=== PATIENT | male | born 1985 | race Caucasian/White ===

== ENCOUNTER 2018-06-05 11:37 | Emergency (ER) | payer OTHER, SELFPAY ==
[2018-06-05 11:40] VITALS: BP 128/78; PULSE 95; RESP 16; TEMP 37; O2SAT 98
--- NOTE | 2018-06-05 11:58 | ED_ITS ---
HPI - General Adult General Chief complaint: Trauma Stated complaint: fall from ladder, L leg pain,L rib Pain Time Seen by Provider: 06/05/18 11:51 Source: patient Mode of arrival: ambulatory Limitations: no limitations History of Present Illness HPI narrative: patient is an otherwise healthy 32-year-old male here for evaluation after he was standing on a ladder painting in the ladder slid out from under him. He states that he fell approximately 10-15 feet. He states that his legs fell through the ladder. He did not hit his head. Was able to ambulate afterwards. He did hit his left side on the ladder. Here complaining of left-sided rib pain with palpation and also left knee pain. Related Data Previous Rx's Medication Instructions Recorded hydrocodone-acetaminophen [Gaston] 1 tab PO Q4-6H PRN #7 tab 06/05/18 Allergies Allergy/AdvReac Type Severity Reaction Status Date / Time No Known Drug Allergies Allergy Verified 06/05/18 12:28 Review of Systems Constitutional Denies frequent falls and Denies headache(s) ENT Ears, Nose, Mouth, and Throat: Denies vertigo and Denies headache(s) Cardiovascular Reports chest pain ( Left-sided chest wall pain) Respiratory Reports pain on inspiration Gastrointestinal Gastrointestinal: Reports abdominal pain, Denies nausea and Denies vomiting Genitourinary Denies dysuria Musculoskeletal Comments: left knee pain Integumentary/Breasts Comments: abrasion to the left lower extremity Neurologic Denies confusion, Denies vertigo, Denies frequent falls and Denies headache(s) Psychiatric Denies confusion Hematologic/Lymphatic Denies easy bleeding and Denies easy bruising PFSH Medical History Vision disorder (Chronic) Family History Father Age: 65 Cancer Diabetes mellitus Mother Age: 64 Heart disease Hypertension Hyperlipidemia Social History Smoking Status: Never smoker Family History Father Age: 65 Cancer Diabetes mellitus Mother Age: 64 Heart disease Hypertension Hyperlipidemia Social History Smoking Status: Never smoker Exam Initial Vital Signs Initial Vital Signs: Vital Signs Temperature 98.6 F 06/05/18 11:40 Pulse Rate 95 H 06/05/18 11:40 Respiratory Rate 16 06/05/18 11:40 Blood Pressure 128/78 06/05/18 11:40 Pulse Oximetry 98 06/05/18 11:40 Const General: cooperative, healthy appearing, comfortable, well developed, well groomed and No acute distress Orientation: alert, awake and oriented x3 HENMT Head: normal to inspection and normocephalic Chest Chest: No crepitus, localized rib tenderness with anteroposterior compression and tenderness Resp Effort & Inspection: normal respiratory effort and no respiratory distress Auscultation: clear to auscultation bilaterally Cardio Rate: regular rate Rhythm: regular rhythm Back/Spine/Pelvis Cervical Spine: No cervical spinal tenderness Thoracic/Lumbar Spine: No thoracic spinal tenderness and No lumbar spinal tenderness Skin Other: patient with abrasions on the anterior aspect of his left knee and also on the anterior lateral aspect of the left lower extremity. Also with abrasions on the right anterior knee. No abrasions over the left chest wall Neuro General: alert, awake and oriented x3 Extrem Other: unremarkable musculoskeletal exam except for some tenderness with palpation of the left tibia and fibula and also with flexion of the left knee. Psych Appearance: grossly normal and well kempt Course Orders Ordered: ED Orders 06/05/18 11:58 XR ribs LT min 3V w CXR1V Stat XR tibia fibula LT 2V Stat Vital Signs - 8 hr 06/05/18 11:40 Temperature 98.6 F Pulse Rate 95 H Respiratory Rate 16 Blood Pressure 128/78 Pulse Oximetry 98 Medical Decision Making Imaging Data X-ray tib-fib: Radiologist's impression: Patient: Juan Mendenhall [facility]#: [id number] : 1985Acct:[id number] Age/Sex: 32 / MDate of Service: 06/05/18 Loc: ED Accession Number: [id number] Procedure: XR tibia fibula LT 2V Ordering Provider: Rodriguez Greene D.O. PROCEDURE: XR TIBIA FIBULA RT 2V INDICATIONS: leg pain after fall TECHNIQUE: 2 views of the tibia and fibula were acquired. COMPARISON: None. FINDINGS: Bones: No fractures or dislocations. No suspicious bony lesions. Soft tissues: No suspicious soft tissue calcifications or masses. IMPRESSION: No fractures. Dictated by: Marc Scott M.D. on 06/05/2018 at 12:44 Approved by: Marc Scott M.D. on 06/05/2018 at 12:45 x-ray ribs: Radiologist's impression: [address] [address] XRay Report Signed Patient: Juan Mendenhall [facility]#: [id number] : 1985Acct:[id number] Age/Sex: 32 / MDate of Service: 06/05/18 Loc: ED Accession Number: [id number] Procedure: XR ribs LT min 3V w CXR1V Ordering Provider: Rodriguez Greene D.O. PROCEDURE: XR RIBS LT MIN 3V W CXR1V INDICATIONS: left lower rib pain after fall TECHNIQUE: 2 views of the left ribs were acquired, along with a single view chest. COMPARISON: None. FINDINGS: Surgical changes and devices: None. Bones and chest wall: No fractures or dislocations. No suspicious bony lesions. Overlying soft tissues appear unremarkable. Lungs and pleura: No pleural effusions or pneumothorax. Lungs appear clear. Mediastinum: Mediastinal contours appear normal. Heart size is normal. IMPRESSION: No displaced left rib fractures. Dictated by: Marc Scott M.D. on 06/05/2018 at 12:45 Approved by: Marc Scott M.D. on 06/05/2018 at 12:46 [facility] Narrative Medical decision making narrative: no fractures on the x-rays. Patient is not in any respiratory distress. We did discuss rib fracture that could potentially not be seen on the x-ray verses a bruised rib. We did discuss return precautions. We discussed the importance of taking big deep breath. He expressed understanding and agreement plan. Discharge Plan Departure Patient Disposition: Home Clinical Impression: Abrasion of skin, Rib pain on left side Instructions: DI for Rib Contusion, DI for Abrasion Activity Restrictions/Additional Instructions: return to the emergency department for any new or worsening symptoms Prescriptions: New hydrocodone-acetaminophen [Gaston] 5-325 mg tablet 1 tab PO Q4-6H PRN (Reason: pain) Qty: 7 RF: 0 Referrals: Pari Walsh MD [Primary Care Provider] -
[2018-06-05 12:00] VITALS: BP 124/74; PULSE 85; RESP 18; O2SAT 100
== END 2018-06-05 13:45 | disposition home or self-care (01) ==
PROVIDERS: Emergency Provider Emergency Medicine; PCP Family Medicine
DX: T14.8XXA Other injury of unspecified body region, initial encounter (principal); R07.81 Pleurodynia; W11.XXXA Fall on and from ladder, initial encounter
CPT/HCPCS: 71101; 73590; 99282; 99283

== ENCOUNTER → 2018-09-01 12:12 | Outpatient (CLI) | payer OTHER, SELFPAY ==
--- NOTE | 2018-09-01 12:14 | DI.RAD.S_ITS ---
PROCEDURE: XR CHEST 2V INDICATIONS: cough TECHNIQUE: 2 views of the chest were acquired. COMPARISON: None. FINDINGS: Surgical changes and devices: None. Lungs and pleura: Lungs are clear. No pleural effusions or pneumothorax. Mediastinum: Mediastinal contours are normal. Heart size is normal. Bones and chest wall: No suspicious bony abnormalities. Soft tissues appear unremarkable. IMPRESSION: Negative chest. No acute cardiopulmonary process is evident. Dictated by: Itz Hernandez M.D. on 09/01/2018 at 12:05 Approved by: Itz Hernandez M.D. on 09/01/2018 at 12:05
== END ==
PROVIDERS: PCP Nurse Practitioner Family; Visit Provider Physician Assistant
DX: R05 Cough (principal)
CPT/HCPCS: 71046

== ENCOUNTER 2018-11-04 08:15 | Emergency (ER) | payer OTHER, SELFPAY ==
[2018-11-04 08:19] VITALS: BP 156/106; PULSE 79; RESP 18; TEMP 36.5; O2SAT 97; BMI 41.3
--- NOTE | 2018-11-04 08:25 | DI.CT.S_ITS ---
PROCEDURE: CT ABDOMEN PELVIS W CON INDICATIONS: Left-sided abdominal pain concern for diverticulitis TECHNIQUE: After the administration of intravenous contrast, 5 mm thick sections acquired from the diaphragm to the symphysis. 5 mm coronal and sagittal reformats were acquired. For radiation dose reduction, the following was used: automated exposure control, adjustment of mA and/or kV according to patient size. COMPARISON: None. FINDINGS: Image quality: Excellent. ABDOMEN: Lung bases: Lung bases are clear. Heart size is normal. Solid organs: Liver is normal in size and enhancement. Fatty infiltration is prominent throughout the liver. Gallbladder appears normal. Biliary system is non dilated. Pancreas enhances normally. Spleen is normal in size and enhancement. No adrenal nodules. Kidneys demonstrate normal size and enhancement, without hydronephrosis. Note is made of a nonobstructive 2 mm calculus at the anterior lateral left collecting system, mid-kidney level Peritoneum and bowel: Bowel loops demonstrate normal wall thickness and caliber. No free fluid or air. Nodes and vessels: No retroperitoneal or mesenteric adenopathy by size criteria. Aorta and inferior vena cava are normal in size. Miscellaneous: No ventral hernias. PELVIS: Genitourinary: Bladder wall thickness is normal. Miscellaneous: No inguinal hernias or adenopathy. Bones: No suspicious bony lesions. No vertebral body compression fractures. IMPRESSION: No evidence of diverticulitis. Fatty infiltration throughout the liver. Single nonobstructive left renal collecting system 2 mm calculus incidentally noted, unlikely to produce the pain symptoms described. Dictated by: Martinez Szymanski M.D. on 11/04/2018 at 10:10 Approved by: Martinez Szymanski M.D. on 11/04/2018 at 10:12
--- NOTE | 2018-11-04 08:27 | ED.ABDPAIN ---
HPI - Abdominal Pain General Chief Complaint: Abdominal Pain Stated Complaint: LOWER ABDOMINAL PAIN LEFT SIDE Time Seen by Provider: 11/04/18 08:16 Source: patient Mode of arrival: ambulatory Limitations: no limitations History of Present Illness HPI narrative: 32-year-old male arrived by private vehicle for concerns of left-sided lower abdominal pain. Patient states that it started on Saturday. He states that it started with an intense urge to have a bowel movement however he was unable to have 1. He states that he has had some nausea but no vomiting since then. No urinary symptoms. Symptoms did get better the next day and the day after that however last evening returned again. Had 1 episode of diarrhea within the past 24 hours which did not change his pain. He states that his pain now is worse than when it started. No prior abdominal surgeries. Related Data Home Medications Medication Instructions Recorded Confirmed loratadine 10 mg tablet 10 mg PO DAILY 09/01/18 09/10/18 Previous Rx's Medication Instructions Recorded benzonatate 100 mg capsule 100 mg PO BEDTIME #20 cap 09/01/18 acetaminophen-codeine 1 tab PO Q8H PRN #10 tab 11/04/18 [Tylenol-Codeine #3] ondansetron 4 mg PO Q6H PRN #14 tab 11/04/18 Allergies Allergy/AdvReac Type Severity Reaction Status Date / Time No Known Drug Allergies Allergy Verified 11/04/18 08:19 Review of Systems Constitutional Denies fever(s) Cardiovascular Denies chest pain and Denies dyspnea Respiratory Denies dyspnea Gastrointestinal Gastrointestinal: Reports abdominal pain, Denies melena, Reports diarrhea, Reports nausea and Denies vomiting Genitourinary Denies dysuria Musculoskeletal Denies abnormal gait, Denies myalgias and Denies arthralgias Integumentary/Breasts Denies new lesions and Denies rash Neurologic Denies abnormal gait Hematologic/Lymphatic Denies easy bleeding and Denies easy bruising Allergic/Immunologic Denies urticaria [facility] Medical History Vision disorder (Chronic) Family History (Updated 09/06/16 @ 00:00 by Pablo Rivers RN) Father Age: 66 Cancer Diabetes mellitus Mother Age: 65 Heart disease Hypertension Hyperlipidemia Social History Smoking Status: Never smoker second hand exposure: No alcohol intake: current (1 beer once every other week) substance use type: does not use Family History (Updated 09/06/16 @ 00:00 by Pablo Rivers RN) Father Age: 66 Cancer Diabetes mellitus Mother Age: 65 Heart disease Hypertension Hyperlipidemia Social History Smoking Status: Never smoker second hand exposure: No alcohol intake: current (1 beer once every other week) substance use type: does not use Exam Initial Vital Signs Initial Vital Signs: Vital Signs Temperature 97.7 F 11/04/18 08:19 Pulse Rate 79 11/04/18 08:19 Respiratory Rate 18 11/04/18 08:19 Blood Pressure 156/106 H 11/04/18 08:19 Pulse Oximetry 97 11/04/18 08:19 Const General: cooperative, well developed, well groomed and No acute distress Orientation: alert, awake and oriented x3 HENMT Head: normal to inspection and normocephalic Resp Effort & Inspection: normal respiratory effort Auscultation: clear to auscultation bilaterally Cardio Rate: regular rate Rhythm: regular rhythm GI Inspection: non-distended Palpation: soft, No firm and tender (Left lower quadrant) External: circumcised Penis: normal penis Scrotum: scrotum normal and no inguinal hernias Testes: normal, no epidiymal tenderness, no masses and no testicular tenderness Back/Spine/Pelvis Back: No CVA tenderness Skin Lesions: no lesions Rashes: no rashes Neuro General: alert and awake Cognition: normal cognition Speech: speech normal Extrem General: normal to inspection and capillary refill normal Psych Appearance: grossly normal and well kempt Scores GCS Tammie coma scale eye opening: Spontaneous Tammie coma scale verbal response: Orientated Tammie coma scale motor response: Obey commands Tammie coma scale total score: 15 Course Orders Ordered: ED Orders 11/04/18 08:25 CT abdomen pelvis w con Stat 11/04/18 08:30 Complete Blood Count AUTO DIFF Stat Comprehensive Metabolic Panel Stat Lipase Stat Discontinued Medications Sodium Chloride (Normal Saline 0.9%) 1,000 mls @ 1,000 mls/hr IV BOLUS ONE Stop: 11/04/18 09:23 Last Infusion: 11/04/18 09:45 Dose: 0 mls/hr Admin: 11/04/18 08:34 Dose: 1,000 mls/hr Morphine Sulfate (Morphine) 4 mg IV NOW ONE Stop: 11/04/18 08:25 Last Admin: 11/04/18 08:34 Dose: 4 mg Vital Signs - 8 hr 11/04/18 08:19 Temperature 97.7 F Pulse Rate 79 Respiratory Rate 18 Blood Pressure 156/106 H Pulse Oximetry 97 MDM - Abdominal Pain Lab Data Attestation: I reviewed the patient's lab results. Result diagrams: 11/04/18 08:30 11/04/18 08:30 Lab Results 11/04/18 11/04/18 Range/Units 08:30 08:30 WBC 10.6 (4.5-11.0) X10^3/uL RBC 5.24 (4.5-5.9) X10^6/uL Hgb 15.6 (13.5-17.5) g/dL Hct 45.1 (41-53) % MCV 86.1 (80-100) fL MCH 29.7 (26-34) PG MCHC 34.5 (30-36) % RDW 13.4 (11.6-14.8) % Plt Count 248 (150-400) X10^3/uL Neut % (Auto) 60.8 (50-75) % Lymph % (Auto) 26.1 (25-40) % [place] % (Auto) 7.6 (3-14) % Eos % (Auto) 4.6 H (2-4) % Baso % (Auto) 0.9 (0-2) % Neut # (Auto) 6400 (1565-1629) /uL Lymph # (Auto) 2800 (5653-3643) /uL [place] # (Auto) 800 (0-900) /uL Eos # (Auto) 500 H (0-450) /uL Baso # (Auto) 100 (0-100) /uL Sodium 140 (137-145) mmol/L Potassium 4.5 (3.4-5.1) mmol/L Chloride 104 (98-107) mmol/L Carbon Dioxide 24 (22-32) mmol/L BUN 12 (9-20) mg/dL Creatinine 0.80 (0.66-1.25) mg/dL Estimated GFR > 60.0 (>60) mL/min BUN/Creatinine Ratio 15.0 (6-22) Glucose 98 (70-100) mg/dL Calcium 9.7 (8.4-10.2) mg/dL Total Bilirubin 1.1 (0.2-1.3) mg/dL AST 51 (17-59) IU/L ALT 91 H (21-72) IU/L Alkaline Phosphatase 75 (38-126) U/L Total Protein 8.7 H (6.3-8.2) g/dL Albumin 4.8 (3.5-5.0) g/dL Globulin 3.9 (1.7-4.1) g/dL Albumin/Globulin Ratio 1.2 (1.0-2.8) Lipase 27 (23-300) U/L Imaging Data CT scan - abdomen: Radiologist's impression: [address] [address] [address] Scan Report Signed Patient: Juan Mendenhall [facility]#: [id number] : 1985Acct:[id number] Age/Sex: te of Service: 11/04/18 Loc: ED Accession Number: [id number] Procedure: CT abdomen pelvis w con Ordering Provider: Rodriguez Greene D.O. PROCEDURE: CT ABDOMEN PELVIS W CON INDICATIONS: Left-sided abdominal pain concern for diverticulitis TECHNIQUE: After the administration of intravenous contrast, 5 mm thick sections acquired from the diaphragm to the symphysis. 5 mm coronal and sagittal reformats were acquired. For radiation dose reduction, the following was used: automated exposure control, adjustment of mA and/or kV according to patient size. COMPARISON: None. FINDINGS: Image quality: Excellent. ABDOMEN: Lung bases: Lung bases are clear. Heart size is normal. Solid organs: Liver is normal in size and enhancement. Fatty infiltration is prominent throughout the liver. Gallbladder appears normal. Biliary system is non dilated. Pancreas enhances normally. Spleen is normal in size and enhancement. No adrenal nodules. Kidneys demonstrate normal size and enhancement, without hydronephrosis. Note is made of a nonobstructive 2 mm calculus at the anterior lateral left collecting system, mid-kidney level Peritoneum and bowel: Bowel loops demonstrate normal wall thickness and caliber. No free fluid or air. Nodes and vessels: No retroperitoneal or mesenteric adenopathy by size criteria. Aorta and inferior vena cava are normal in size. Miscellaneous: No ventral hernias. PELVIS: Genitourinary: Bladder wall thickness is normal. Miscellaneous: No inguinal hernias or adenopathy. Bones: No suspicious bony lesions. No vertebral body compression fractures. IMPRESSION: No evidence of diverticulitis. Fatty infiltration throughout the liver. Single nonobstructive left renal collecting system 2 mm calculus incidentally noted, unlikely to produce the pain symptoms described. Dictated by: Martinez Szymanski M.D. on 11/04/2018 at 10:10 Approved by: Martinez Szymanski M.D. on 11/04/2018 at 10:12 [facility] Narrative Medical decision making narrative: Patient has a relatively benign abdominal exam. CT scan shows no acute pathology. Labs unremarkable. Patient is tolerating oral intake. No indication for antibiotics. No indication for surgical consultation. Patient was given return precautions and follow-up instructions. He expressed understanding and agreement with plan. Discharge Plan Departure Patient Disposition: Home Clinical Impression: Abdominal pain Qualifiers: Abdominal location: left lower quadrant Qualified Code(s): R10.32 - Left lower quadrant pain Instructions: DI for Abdominal Pain-Adult Activity Restrictions/Additional Instructions: The CT scan and labs done here in the emergency department were unremarkable. There is no indication for any antibiotics. Take the medications as directed and as needed. Contact your primary provider for follow-up. Return to the emergency department for any new or worsening symptoms Prescriptions: New acetaminophen-codeine [Tylenol-Codeine #3] 300-30 mg tablet 1 tab PO Q8H PRN (Reason: pain) Qty: 10 RF: 0 ondansetron 4 mg tablet,disintegrating 4 mg PO Q6H PRN (Reason: nausea and vomiting) Qty: 14 RF: 0 No Action loratadine [Allergy Relief (loratadine)] 10 mg tablet 10 mg PO DAILY RF: 0 benzonatate 100 mg capsule 100 mg PO BEDTIME Qty: 20 RF: 0 Referrals: Darrel Candelaria ARNP [Primary Care Provider] -
--- NOTE | 2018-11-04 08:30 | ED_ITS ---
HPI - Abdominal Pain General Chief Complaint: Abdominal Pain Stated Complaint: LOWER ABDOMINAL PAIN LEFT SIDE Time Seen by Provider: 11/04/18 08:16 Source: patient Mode of arrival: ambulatory Limitations: no limitations History of Present Illness HPI narrative: 32-year-old male arrived by private vehicle for concerns of left- sided lower abdominal pain. Patient states that it started on Saturday. He states that it started with an intense urge to have a bowel movement however he was unable to have 1. He states that he has had some nausea but no vomiting since then. No urinary symptoms. Symptoms did get better the next day and the day after that however last evening returned again. Had 1 episode of diarrhea within the past 24 hours which did not change his pain. He states that his pain now is worse than when it started. No prior abdominal surgeries. Related Data Home Medications Medication Instructions Recorded Confirmed loratadine 10 mg tablet 10 mg PO DAILY 09/01/18 09/10/18 Previous Rx's Medication Instructions Recorded benzonatate 100 mg capsule 100 mg PO BEDTIME #20 cap 09/01/18 acetaminophen-codeine 1 tab PO Q8H PRN #10 tab 11/04/18 [Tylenol-Codeine #3] ondansetron 4 mg PO Q6H PRN #14 tab 11/04/18 Allergies Allergy/AdvReac Type Severity Reaction Status Date / Time No Known Drug Allergies Allergy Verified 11/04/18 08:19 Review of Systems Constitutional Denies fever(s) Cardiovascular Denies chest pain and Denies dyspnea Respiratory Denies dyspnea Gastrointestinal Gastrointestinal: Reports abdominal pain, Denies melena, Reports diarrhea, Reports nausea and Denies vomiting Genitourinary Denies dysuria Musculoskeletal Denies abnormal gait, Denies myalgias and Denies arthralgias Integumentary/Breasts Denies new lesions and Denies rash Neurologic Denies abnormal gait Hematologic/Lymphatic Denies easy bleeding and Denies easy bruising Allergic/Immunologic Denies urticaria [facility] Medical History Vision disorder (Chronic) Family History (Updated 09/06/16 @ 00:00 by Pablo Rivers RN) Father Age: 66 Cancer Diabetes mellitus Mother Age: 65 Heart disease Hypertension Hyperlipidemia Social History Smoking Status: Never smoker second hand exposure: No alcohol intake: current (1 beer once every other week) substance use type: does not use Family History (Updated 09/06/16 @ 00:00 by Pablo Rivers RN) Father Age: 66 Cancer Diabetes mellitus Mother Age: 65 Heart disease Hypertension Hyperlipidemia Social History Smoking Status: Never smoker second hand exposure: No alcohol intake: current (1 beer once every other week) substance use type: does not use Exam Initial Vital Signs Initial Vital Signs: Vital Signs Temperature 97.7 F 11/04/18 08:19 Pulse Rate 79 11/04/18 08:19 Respiratory Rate 18 11/04/18 08:19 Blood Pressure 156/106 H 11/04/18 08:19 Pulse Oximetry 97 11/04/18 08:19 Const General: cooperative, well developed, well groomed and No acute distress Orientation: alert, awake and oriented x3 HENMT Head: normal to inspection and normocephalic Resp Effort & Inspection: normal respiratory effort Auscultation: clear to auscultation bilaterally Cardio Rate: regular rate Rhythm: regular rhythm GI Inspection: non-distended Palpation: soft, No firm and tender (Left lower quadrant) External: circumcised Penis: normal penis Scrotum: scrotum normal and no inguinal hernias Testes: normal, no epidiymal tenderness, no masses and no testicular tenderness Back/Spine/Pelvis Back: No CVA tenderness Skin Lesions: no lesions Rashes: no rashes Neuro General: alert and awake Cognition: normal cognition Speech: speech normal Extrem General: normal to inspection and capillary refill normal Psych Appearance: grossly normal and well kempt Scores GCS [place] coma scale eye opening: Spontaneous [place] coma scale verbal response: Orientated [place] coma scale motor response: Obey commands Tammie coma scale total score: 15 Course Orders Ordered: ED Orders 11/04/18 08:25 CT abdomen pelvis w con Stat 11/04/18 08:30 Complete Blood Count AUTO DIFF Stat Comprehensive Metabolic Panel Stat Lipase Stat Discontinued Medications Sodium Chloride (Normal Saline 0.9%) 1,000 mls @ 1,000 mls/hr IV BOLUS ONE Stop: 11/04/18 09:23 Last Infusion: 11/04/18 09:45 Dose: 0 mls/hr Admin: 11/04/18 08:34 Dose: 1,000 mls/hr Morphine Sulfate (Morphine) 4 mg IV NOW ONE Stop: 11/04/18 08:25 Last Admin: 11/04/18 08:34 Dose: 4 mg Vital Signs - 8 hr 11/04/18 08:19 Temperature 97.7 F Pulse Rate 79 Respiratory Rate 18 Blood Pressure 156/106 H Pulse Oximetry 97 MDM - Abdominal Pain Lab Data Attestation: I reviewed the patient's lab results. Result diagrams: 11/04/18 08:30 11/04/18 08:30 Lab Results 11/04/18 11/04/18 Range/Units 08:30 08:30 WBC 10.6 (4.5-11.0) X10^3/uL RBC 5.24 (4.5-5.9) X10^6/uL Hgb 15.6 (13.5-17.5) g/dL Hct 45.1 (41-53) % MCV 86.1 (80-100) fL MCH 29.7 (26-34) PG MCHC 34.5 (30-36) % RDW 13.4 (11.6-14.8) % Plt Count 248 (150-400) X10^3/uL Neut % (Auto) 60.8 (50-75) % Lymph % (Auto) 26.1 (25-40) % [place] % (Auto) 7.6 (3-14) % Eos % (Auto) 4.6 H (2-4) % Baso % (Auto) 0.9 (0-2) % Neut # (Auto) 6400 (9609-8463) /uL Lymph # (Auto) 2800 (4379-4812) /uL [place] # (Auto) 800 (0-900) /uL Eos # (Auto) 500 H (0-450) /uL Baso # (Auto) 100 (0-100) /uL Sodium 140 (137-145) mmol/L Potassium 4.5 (3.4-5.1) mmol/L Chloride 104 (98-107) mmol/L Carbon Dioxide 24 (22-32) mmol/L BUN 12 (9-20) mg/dL Creatinine 0.80 (0.66-1.25) mg/dL Estimated GFR > 60.0 (>60) mL/min BUN/Creatinine Ratio 15.0 (6-22) Glucose 98 (70-100) mg/dL Calcium 9.7 (8.4-10.2) mg/dL Total Bilirubin 1.1 (0.2-1.3) mg/dL AST 51 (17-59) IU/L ALT 91 H (21-72) IU/L Alkaline Phosphatase 75 (38-126) U/L Total Protein 8.7 H (6.3-8.2) g/dL Albumin 4.8 (3.5-5.0) g/dL Globulin 3.9 (1.7-4.1) g/dL Albumin/Globulin Ratio 1.2 (1.0-2.8) Lipase 27 (23-300) U/L Imaging Data CT scan - abdomen: Radiologist's impression: [address] [address] [address] Scan Report Signed Patient: Juan Mendenhall [facility]#: [id number] : 1985Acct:[id number] Age/Sex: te of Service: 11/04/18 Loc: ED Accession Number: [id number] Procedure: CT abdomen pelvis w con Ordering Provider: Rdoriguez Greene D.O. PROCEDURE: CT ABDOMEN PELVIS W CON INDICATIONS: Left-sided abdominal pain concern for diverticulitis TECHNIQUE: After the administration of intravenous contrast, 5 mm thick sections acquired from the diaphragm to the symphysis. 5 mm coronal and sagittal reformats were acquired. For radiation dose reduction, the following was used: automated exposure control, adjustment of mA and/or kV according to patient size. COMPARISON: None. FINDINGS: Image quality: Excellent. ABDOMEN: Lung bases: Lung bases are clear. Heart size is normal. Solid organs: Liver is normal in size and enhancement. Fatty infiltration is prominent throughout the liver. Gallbladder appears normal. Biliary system is non dilated. Pancreas enhances normally. Spleen is normal in size and enhancement. No adrenal nodules. Kidneys demonstrate normal size and enhancement, without hydronephrosis. Note is made of a nonobstructive 2 mm calculus at the anterior lateral left collecting system, mid-kidney level Peritoneum and bowel: Bowel loops demonstrate normal wall thickness and caliber. No free fluid or air. Nodes and vessels: No retroperitoneal or mesenteric adenopathy by size criteria. Aorta and inferior vena cava are normal in size. Miscellaneous: No ventral hernias. PELVIS: Genitourinary: Bladder wall thickness is normal. Miscellaneous: No inguinal hernias or adenopathy. Bones: No suspicious bony lesions. No vertebral body compression fractures. IMPRESSION: No evidence of diverticulitis. Fatty infiltration throughout the liver. Single nonobstructive left renal collecting system 2 mm calculus incidentally noted, unlikely to produce the pain symptoms described. Dictated by: Martinez Szymanski M.D. on 11/04/2018 at 10:10 Approved by: Martinez Szymanski M.D. on 11/04/2018 at 10:12 [facility] Narrative Medical decision making narrative: Patient has a relatively benign abdominal exam. CT scan shows no acute pathology. Labs unremarkable. Patient is tolerating oral intake. No indication for antibiotics. No indication for surgical consultation. Patient was given return precautions and follow-up instructions. He expressed understanding and agreement with plan. Discharge Plan Departure Patient Disposition: Home Clinical Impression: Abdominal pain Qualifiers: Abdominal location: left lower quadrant Qualified Code(s): R10.32 - Left lower quadrant pain Instructions: DI for Abdominal Pain-Adult Activity Restrictions/Additional Instructions: The CT scan and labs done here in the emergency department were unremarkable. There is no indication for any antibiotics. Take the medications as directed and as needed. Contact your primary provider for follow-up. Return to the emergency department for any new or worsening symptoms Prescriptions: New acetaminophen-codeine [Tylenol-Codeine #3] 300-30 mg tablet 1 tab PO Q8H PRN (Reason: pain) Qty: 10 RF: 0 ondansetron 4 mg tablet,disintegrating 4 mg PO Q6H PRN (Reason: nausea and vomiting) Qty: 14 RF: 0 No Action loratadine [Allergy Relief (loratadine)] 10 mg tablet 10 mg PO DAILY RF: 0 benzonatate 100 mg capsule 100 mg PO BEDTIME Qty: 20 RF: 0 Referrals: Darrel Candelaria ARNP [Primary Care Provider] -
[2018-11-04] MEDS: SODIUM CHLORIDE 0.9% 1,000 ML 1000 ML IV (08:34)
[2018-11-04] MEDS: MORPHINE 4 MG/ML INJ IV (08:34)
[2018-11-04 08:43] LABS: Add Manual Diff / Slide Review NO; Basophils Absolute Auto 100 /uL (0-100); Basophils Percent Auto 0.9 % (0-2); Eosinophils Absolute Auto 500 /uL (0-450); Eosinophils Percent Auto 4.6 % (2-4); Hematocrit 45.1 % (41-53); Hemoglobin 15.6 g/dL (13.5-17.5); Lymphocytes Absolute Auto 2800 /uL (1100-4500); Lymphocytes Percent Auto 26.1 % (25-40); Mean Corpuscular HGB Conc 34.5 % (30-36); Mean Corpuscular Hemoglobin 29.7 PG (26-34); Mean Corpuscular Volume 86.1 fL (80-100); Monocytes Absolute Auto 800 /uL (0-900); Monocytes Percent Auto 7.6 % (3-14); Neutrophils Absolute Auto 6400 /uL (1500-7000); Neutrophils Percent Auto 60.8 % (50-75); Platelet Count 248 X10^3/uL (150-400); Red Blood Cell Count 5.24 X10^6/uL (4.5-5.9); Red Cell Distribution Width 13.4 % (11.6-14.8); White Blood Cell Count 10.6 X10^3/uL (4.5-11.0)
[2018-11-04 08:56] LABS: Alanine Aminotransferase 91 IU/L (21-72); Albumin 4.8 g/dL (3.5-5.0); Albumin Globulin Ratio 1.2 (1.0-2.8); Alkaline Phosphatase 75 U/L (38-126); Aspartate Aminotransferase 51 IU/L (17-59); Bilirubin Total 1.1 mg/dL (0.2-1.3); Blood Urea Nitrogen 12 mg/dL (9-20); Calcium 9.7 mg/dL (8.4-10.2); Carbon Dioxide 24 mmol/L (22-32); Chloride 104 mmol/L (98-107); Estimated Glomerular Filt Rate > 60.0 mL/min (>60); Globulin 3.9 g/dL (1.7-4.1); Glucose 98 mg/dL (70-100); HEMOLYSIS < 15 (0-50); Lipase 27 U/L (23-300); Potassium 4.5 mmol/L (3.4-5.1); Sodium 140 mmol/L (137-145); Total Protein 8.7 g/dL (6.3-8.2)
[2018-11-04 10:42] VITALS: BP 157/100; PULSE 76; RESP 16; O2SAT 99
[2018-11-04] MEDS: CODEINE/ACETAMINOPHEN 30/300 TABLET 1 TAB PO (10:53)
[2018-11-04 11:28] VITALS: BP 159/89; PULSE 72; RESP 13; O2SAT 99
== END 2018-11-04 11:29 | disposition home or self-care (01) ==
PROVIDERS: Emergency Provider Emergency Medicine; PCP Nurse Practitioner Family
DX: R10.32 Left lower quadrant pain (principal)
CPT/HCPCS: 36591; 74177; 80053; 83690; 85025; 96361; 96374; 99283; 99284; J2270; Q9967

== ENCOUNTER → 2018-12-10 09:43 | Outpatient (CLI) | payer OTHER, SELFPAY ==
--- NOTE | 2018-12-10 09:45 | DI.RAD.S_ITS ---
PROCEDURE: XR CHEST 2V INDICATIONS: wheezing, cough TECHNIQUE: 2 views of the chest were acquired. COMPARISON: [facility], CR, XR CHEST 2V, 09/01/2018, 12:29. FINDINGS: Surgical changes and devices: None. Lungs and pleura: Lungs are clear. No pleural effusions or pneumothorax. Mediastinum: Mediastinal contours are normal. Heart size is normal. Bones and chest wall: No suspicious bony abnormalities. Soft tissues appear unremarkable. IMPRESSION: No acute cardiopulmonary abnormalities. Dictated by: Demond Raman M.D. on 12/10/2018 at 11:33 Approved by: Demond Raman M.D. on 12/10/2018 at 11:34
== END ==
PROVIDERS: PCP Nurse Practitioner Family; Visit Provider Nurse Practitioner Family
DX: R06.2 Wheezing (principal); R05 Cough
CPT/HCPCS: 71046

== ENCOUNTER → 2019-01-19 12:53 | Outpatient (CLI) | payer OTHER, SELFPAY ==
--- NOTE | 2019-01-23 16:06 | PM.PFT.1 ---
Pulmonary Function Test Referral & Results Date Patient Seen: 01/19/19 Requesting provider: Darrel Candelaria Results: The spirometry demonstrates an FVC of 5.62 L which is 91% of predicted. The FEV1 was measured at 4.69 L which is 94% of predicted. The FEV1/FVC ratio was 83 which is 102% of predicted. Following the administration of bronchodilator there was no appreciable change to above normal numbers. Lung volumes show an SVC of 5.78 L which is 99% of predicted. The diffusing capacity was measured at 35.79 which is 94% of predicted. The maximum voluntary ventilation was normal Interpretation: This study demonstrates normal pulmonary function
== END ==
PROVIDERS: PCP Nurse Practitioner Family; Visit Provider Nurse Practitioner Family
DX: R06.2 Wheezing (principal); Z87.09 Personal history of other diseases of the respiratory system
CPT/HCPCS: 94060; 94726; 94729

== ENCOUNTER 2019-10-08 16:07 | Emergency (ER) | payer OTHER, SELFPAY ==
[2019-10-08 16:11] VITALS: BP 128/80; PULSE 109; RESP 18; TEMP 37.4; O2SAT 99; BMI 41.3
--- NOTE | 2019-10-08 18:17 | ED_ITS ---
HPI - Extremity Injury (Lower) General Chief Complaint: Extremity Injury, Lower Stated Complaint: KNEE CAP INFECTION Time Seen by Provider: 10/08/19 18:00 Source: patient and family Mode of arrival: Wheelchair Limitations: physical limitation History of Present Illness HPI Narrative: Patient here with . He complains of left knee cap pain. Denies any injury. Denies drainage skin injury. No history of diabetes or IV drug use. denies any recent repetitive stress of the knee. Previous injury to the knee without any surgical intervention. Pain started after dinner last night, 24 hours ago. Noticed erythema and swelling. Pain with movement and weight-bearing. Able to bend to 90?. No other complaints. There are pain and swelling isolated to the knee cap. Related Data Home Medications Medication Instructions Recorded Confirmed ibuprofen 200 mg tablet 600 mg PO Q6H PRN tab 04/22/19 10/08/19 Previous Rx's Medication Instructions Recorded albuterol sulfate 90 mcg/actuation 1 inhalation INHALATION Q6H PRN #1 10/02/19 breath activated powder inhaler each montelukast 10 mg tablet 10 mg PO BEDTIME #90 tab 10/02/19 cephalexin [Keflex] 500 mg PO QID #28 cap 10/08/19 Allergies Allergy/AdvReac Type Severity Reaction Status Date / Time No Known Drug Allergies Allergy Verified 10/08/19 15:39 Review of Systems Review of Systems Narrative: GENERAL: Denies chills, fatigue, malaise, fever, sweats. HEENT: Denies sinus pain, ear pain, sore throat, difficulty swallowing, dizziness. RESPIRATORY: Denies dyspnea, cough, wheezing, hemoptysis, sputum. CARDIOVASCULAR: Denies chest pain, palpitations, orthopnea, edema, GASTROINTESTINAL: Denies nausea, vomiting, abdominal pain, diarrhea, constipation, melena. MUSCULOSKELETAL: Complains of joint pain SKIN: Denies rash, skin lesions, or other NEUROLOGIC: Denies weakness, headache, numbness, change in speech, confusion, seizures, incoordination. PSYCHIATRIC: No concerning psychosocial issues. ROS Unobtainable: All systems reviewed & are unremarkable except as noted in HPI and below Patient History Medical History Encounter for wellness examination in adult (Acute) Fatty infiltration of liver (Acute 10/2018) GERD (gastroesophageal reflux disease) (Chronic) Mild asthma (Acute) Mixed hyperlipidemia (Acute 08/2019) Seasonal allergies (Acute) Vision disorder (Chronic) Family History Father Age: 67 Cancer Diabetes mellitus Mother Age: 66 Heart disease Hypertension Hyperlipidemia Social History Smoking Status: Never smoker second hand exposure: No alcohol intake: current (1 beer once every other week) substance use type: does not use Smoking Status: Never smoker alcohol intake frequency: 0-2 drinks per day Substance Use Type: does not use Exam Narrative Exam Narrative: GENERAL: patient appears stated age. Well-nourished, well- developed patient, in no distress, not toxic HEAD: Atraumatic. Normocephalic. r CARDIOVASCULAR: Regular rate and rhythm without murmurs, gallops, or rubs. RESPIRATORY: Clear to auscultation. Breath sounds equal bilaterally. No wheezes, rales, or rhonchi. EXTREMITIES: Pants off. Shoe and sock off on left foot. Strong pedal pulse foot warm soft and pain. Able to bear weight but has antalgic gait due to left knee pain. In supine position able to bring knee to 90?. Actively. Examination of the knee there is isolated well bordered margin of erythema on the patella. Palpable effusion overlying the patella. No red streaking. NEURO: AOx3. SKIN: No rash or erythema of visible areas Initial Vital Signs Initial Vital Signs: Vital Signs Temperature 99.3 F 10/08/19 16:11 Pulse Rate 109 H 10/08/19 16:11 Respiratory Rate 18 10/08/19 16:11 Blood Pressure 128/80 10/08/19 16:11 Pulse Oximetry 99 10/08/19 16:11 Course Course Course Narrative: not toxic..pain controlled during stay...pt not want any opiates Orders Ordered: ED Orders 10/08/19 18:15 XR knee LT 1to2V Stat 10/08/19 18:35 C-Reactive Protein Quant Stat Complete Blood Count AUTO DIFF Stat Comprehensive Metabolic Panel Stat Erythrocyte Sedimentation Rate Stat Uric Acid Stat Discontinued Medications Cephalexin HCl (Keflex) 500 mg PO NOW ONE Stop: 10/08/19 19:23 Last Admin: 10/08/19 19:45 Dose: 500 mg Documented by: KBROTEM Ketorolac Tromethamine (Toradol) 60 mg IM NOW ONE Stop: 10/08/19 18:22 Last Admin: 10/08/19 18:35 Dose: 60 mg Documented by: WALDO Reevaluation(s) Reevaluation #1: pt doing well...pain improved after toradol Time: 19:38 Consultations Consultation #1: s/w dr gutierrez, ortho, no aspiration confusion. Have patient call in the morning to his office for progress or any changes. Will see patient next week for recheck. Place patient on Keflex. Time: 19:38 Vital Signs Vital signs: Vital Signs - 8 hr 10/08/19 19:57 Pulse Rate 92 H Respiratory Rate 18 Blood Pressure 118/73 Pulse Oximetry 98 MDM - Extremity Injury (Lower) Differential Diagnosis Differential diagnosis: Likely other (Bursitis/septic joint/effusion/strain) Lab Data Result diagrams: 10/08/19 18:35 10/08/19 18:35 Labs: Lab Results 10/08/19 10/08/19 Range/Units 18:35 18:35 WBC 10.9 (4.5-11.0) X10^3/uL RBC 4.82 (4.5-5.9) X10^6/uL Hgb 14.5 (13.5-17.5) g/dL Hct 41.8 (41-53) % MCV 86.7 (80-100) fL MCH 30.1 (26-34) PG MCHC 34.8 (30-36) % RDW 13.5 (11.6-14.8) % Plt Count 184 (150-400) X10^3/uL Neut % (Auto) 72.4 (50-75) % Lymph % (Auto) 17.5 L (25-40) % [place] % (Auto) 8.1 (3-14) % Eos % (Auto) 1.3 L (2-4) % Baso % (Auto) 0.7 (0-2) % Neut # (Auto) 7900 H (4995-6906) /uL Lymph # (Auto) 1900 (4351-9966) /uL [place] # (Auto) 900 (0-900) /uL Eos # (Auto) 100 (0-450) /uL Baso # (Auto) 100 (0-100) /uL ESR 17 H (0-15) MM/HR Sodium 138 (137-145) mmol/L Potassium 4.3 (3.4-5.1) mmol/L Chloride 102 (98-107) mmol/L Carbon Dioxide 29 (22-32) mmol/L BUN 16 (9-20) mg/dL Creatinine 0.87 (0.66-1.25) mg/dL Estimated GFR > 60.0 (>60) mL/min BUN/Creatinine Ratio 18.4 (6-22) Glucose 92 (70-100) mg/dL Uric Acid 6.9 (3.5-8.5) mg/dL Calcium 9.7 (8.4-10.2) mg/dL Total Bilirubin 0.9 (0.2-1.3) mg/dL AST 65 H (17-59) IU/L ALT 116 H (<50) IU/L Alkaline Phosphatase 73 (38-126) U/L C-Reactive Protein 3.9 H (<1.0) mg/dL Total Protein 8.4 H (6.3-8.2) g/dL Albumin 4.7 (3.5-5.0) g/dL Globulin 3.7 (1.7-4.1) g/dL Albumin/Globulin Ratio 1.3 (1.0-2.8) Imaging Data Left knee x-ray: Radiologist's Impression: [place] [address] XRay Report Signed Patient: Juan Mendenhall [facility]#: [id number] : 1985Acct:[id number] Age/Sex: 33 / MDate of Service: 10/08/19 Loc: ED Accession Number: [id number] Procedure: XR knee LT 1to2V Ordering Provider: Kevin Segal MD PROCEDURE: XR KNEE LT 1TO2V INDICATIONS: pain/swelling TECHNIQUE: 2 views of the knee were acquired. COMPARISON: None. FINDINGS: Bones: No fractures or dislocations. No suspicious bony lesions. Soft tissues: No joint effusion. No suspicious soft tissue calcifications. Anterior soft tissue swelling along patella and patella tendon is seen. IMPRESSION: Anterior left knee soft tissue swelling. No left knee fracture or dislocation. No joint effusion. Dictated by: Jake Anderson M.D. on 10/08/2019 at 19:15 Approved by: Jake Anderson M.D. on 10/08/2019 at 19:15 [facility] Narrative Medical decision making narrative: No fever. Normal white cell count. ESR and CRP elevation likely due to inflammation. Not septic knee. Able to bear weight and flex to 90?. Appropriate for discharge home Discharge Plan Departure Patient Disposition: Home Clinical Impression: Patellar bursitis of left knee Discharge Date/Time: 10/08/19 20:08 Instructions: DI for Bursitis Activity Restrictions/Additional Instructions: May continue ibuprofen 800 mg every 8 hours as needed for pain and swelling. May use cool packs to the knee when at rest, 20 minutes at a time. Called provided orthopedic office in the morning informed office that Dr. Gutierrez is expecting a call on how you are doing tomorrow. Return immediately if worse or if any questions or concerns or any fever chills or increased swelling or pain to the knee or unable to walk. Continue antibiotic tomorrow morning. Prescriptions: New cephalexin [Keflex] 500 mg capsule 500 mg PO QID Qty: 28 RF: 0 No Action albuterol sulfate 90 mcg/actuation aerosol powdr breath activated 1 inhalation INHALATION Q6H PRN (Reason: shortness of breath or wheezing) Qty: 1 RF: 5 montelukast [Singulair] 10 mg tablet 10 mg PO BEDTIME Qty: 90 RF: 3 ibuprofen 200 mg tablet 600 mg PO Q6H PRNRF: 0 Referrals: Darrel Candelaria ARNP [Primary Care Provider] - Edward Gutierrez MD [Physician] -
[2019-10-08] MEDS: KETOROLAC 60 MG/2 ML VIAL IM (18:35)
[2019-10-08 18:42] LABS: Add Manual Diff / Slide Review NO; Basophils Absolute Auto 100 /uL (0-100); Basophils Percent Auto 0.7 % (0-2); Eosinophils Absolute Auto 100 /uL (0-450); Eosinophils Percent Auto 1.3 % (2-4); Hematocrit 41.8 % (41-53); Hemoglobin 14.5 g/dL (13.5-17.5); Lymphocytes Absolute Auto 1900 /uL (1100-4500); Lymphocytes Percent Auto 17.5 % (25-40); Mean Corpuscular HGB Conc 34.8 % (30-36); Mean Corpuscular Hemoglobin 30.1 PG (26-34); Mean Corpuscular Volume 86.7 fL (80-100); Monocytes Absolute Auto 900 /uL (0-900); Monocytes Percent Auto 8.1 % (3-14); Neutrophils Absolute Auto 7900 /uL (1500-7000); Neutrophils Percent Auto 72.4 % (50-75); Platelet Count 184 X10^3/uL (150-400); Red Blood Cell Count 4.82 X10^6/uL (4.5-5.9); Red Cell Distribution Width 13.5 % (11.6-14.8); White Blood Cell Count 10.9 X10^3/uL (4.5-11.0)
[2019-10-08 18:59] LABS: Erythrocyte Sedimentation Rate 17 MM/HR (0-15)
[2019-10-08 19:00] LABS: Alanine Aminotransferase 116 IU/L (<50); Albumin 4.7 g/dL (3.5-5.0); Albumin Globulin Ratio 1.3 (1.0-2.8); Alkaline Phosphatase 73 U/L (38-126); Aspartate Aminotransferase 65 IU/L (17-59); BUN Creatinine Ratio 18.4 (6-22); Bilirubin Total 0.9 mg/dL (0.2-1.3); Blood Urea Nitrogen 16 mg/dL (9-20); C-Reactive Protein Quant 3.9 mg/dL (<1.0); Calcium 9.7 mg/dL (8.4-10.2); Carbon Dioxide 29 mmol/L (22-32); Chloride 102 mmol/L (98-107); Estimated Glomerular Filt Rate > 60.0 mL/min (>60); Globulin 3.7 g/dL (1.7-4.1); Glucose 92 mg/dL (70-100); HEMOLYSIS < 15 (0-50); Potassium 4.3 mmol/L (3.4-5.1); Sodium 138 mmol/L (137-145); Total Protein 8.4 g/dL (6.3-8.2); Uric Acid 6.9 mg/dL (3.5-8.5)
[2019-10-08] MEDS: cephALEXin 250 MG CAPSULE 500 MG PO (19:45)
[2019-10-08 19:57] VITALS: BP 118/73; PULSE 92; RESP 18; O2SAT 98
== END 2019-10-08 20:08 | disposition home or self-care (01) ==
PROVIDERS: Emergency Provider Emergency Medicine; PCP Nurse Practitioner Family
DX: M70.52 Other bursitis of knee, left knee (principal)
CPT/HCPCS: 36415; 73560; 80053; 84550; 85025; 85651; 86140; 96372; 99284; J1885

== ENCOUNTER → 2021-06-26 10:54 | Outpatient (CLI) | payer OTHER, SELFPAY ==
--- NOTE | 2021-06-26 10:58 | DIET.CONS ---
Dietary Consultation Note Assessment: 35y M attending RD visit for help with HLD, NAFLD (AST 65 ALT 116) and obesity. Ht: 6'2 Wt: 340# BMI: 43.7 Lives with and daughters (4.5y and 1y) goes to school, pt does the cooking. 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 Often grabs fast food before meeting 6-630pm or waits until after and grabs food on way home. Lunches are often eating out, barrier is time to prep meal, doing this 4-5x/w. Usually can cook Tues and Wed, Sat, Sun, Mon, but not Thurs and Fri. McD[employer] (4 cheeseburgers c medium marquez and sweet tea), and [employer] (arby sandwich, curly fries, root beer) closest to work Likes [employer] chicken) once weekly Mod Pizza (mod size with caspian bbq chicken, water) Sometimes [employer] and [employer] (street tacos) usually drinks water Usual Day: wakes 730am drinks 16oz coffee daily (coffee c whole cream and monkfruit) Lunch 11am- often eats out Eats breakfast on a day off 10am: whitaker and eggs c potatoes- brunch Dinners at home: chicken breasts or smoked pork loins, chops, steaks c asparagus, roast broccoli is allergic to all raw fruits and vegetables so family mostly eats cooked. Pt is night owl, family goes to bed 9pm, pt stays up and eats, jerky, chips, snacks (salty and crunchy) while watching TV, fizzy water Pt has barriers to physical activity of little to no time. When he was working out he would set alarm and go to gym at 4am, this doesn't seem reasonable for him right now. Has used [employer] system in the past for meal replacements, interested in continuing this in some fashion. RD Impression: Large framed male desires regulated laboratory values to reduce risk of cardiovascular disease, would like some weight loss as well though pt likely always measure obese on BMI scale secondary to genetic factors. Pt barriers to healthy eating is erratic schedule without meal planning. Pt eating take out 5-10x/w often fast food choices like [employer]. Pt not snacking during the day leading to frequent fast food eating and excessive evening snacking. Pt will do well to incorporate strength training 2-3d/w along with better fueling of body with planned meals and snacks, even with some take out eating. Nutrition Diagnosis: altered nutrition related laboratory values r/t undesirable food choices and meal timing, physical inactivity aeb BMI 43.7, AST 65, ALT 116, pt eats fast food 5-10x/w, no time for exercise. Interventions: 1. Introduced pt to hunger scale. Pt will use scale to identify hunger and fullness cues to see where meals and snacks should be placed in day. Pt will use tool to identify appropriate portion sizes with goal of cutting back on fast food meals with smartly placed snacks. 2. Discussed busy schedule barrier to meal planning/prep. If pt eats take out, will go to more fast casual places like [employer] or [facility] and will avoid sugar sweetened beverages. 3. Discussed role of dietary sugar and dietary fiber on weight and altered labs. Pt will aim for 30 grams dietary fiber daily, choose packaged foods with 3g fiber or more per serving and snack more on high fiber crackers with hummus or fresh fruit with fiber added yogurts. Will avoid sugar sweetened beverages. 4. Discussed evening snacking. Goal to fuel properly in daytime to reduce desire to snack at night and if snacking, choose high fiber and high protein options: jerky, nuts in shell, popcorn, high fiber items (3+g/serving). EER: 35g fiber per day Monitoring/Evaluations: f/u in 5w telehealth Electronically Signed by: Farheen Zamarripa 06/26/21 10:58 Clinical Dietitian [id number] [place] [address]
== END ==
PROVIDERS: PCP Nurse Practitioner Family; Referring Provider Nurse Practitioner Family; Visit Provider Nurse Practitioner Family
DX: E78.5 Hyperlipidemia, unspecified (principal); K76.0 Fatty (change of) liver, not elsewhere classified; E66.9 Obesity, unspecified; Z68.41 Body mass index [BMI] 40.0-44.9, adult; Z71.3 Dietary counseling and surveillance
CPT/HCPCS: 97802

== ENCOUNTER → 2021-11-27 15:43 | Outpatient (CLI) | payer OTHER, SELFPAY ==
[2021-11-27 16:38] LABS: Semen Sperm Prescence Post-Vas Absent (ABSENT)
== END ==
PROVIDERS: PCP Family Medicine; Referring Provider Family Medicine; Visit Provider Family Medicine
DX: Z30.2 Encounter for sterilization (principal)
CPT/HCPCS: 89321

== ENCOUNTER → 2021-12-27 07:46 | Outpatient (CLI) | payer OTHER, SELFPAY ==
--- NOTE | 2021-12-27 07:47 | DI.US.S_ITS ---
PROCEDURE: US ABDOMEN LIMITED INDICATIONS: FATTY LIVER INFILTRATION TECHNIQUE: Real-time focused scanning was performed of the abdomen, with image documentation. COMPARISON: [facility], CT, CT ABDOMEN PELVIS W CON, 11/04/2018, 9:49. FINDINGS: The liver demonstrates mildly enlarged size. The liver demonstrates generalized moderately increased echogenicity. This decreases ultrasound sensitivity for detection of hepatic masses. The main portal vein demonstrates mildly increased size at 16.6 mm and demonstrates normal appearing, hepatopetal flow. The gallbladder is partially contracted, which limits its evaluation. No findings of gallstones or sludge are seen. The gallbladder wall is not thickened, measuring 3 mm or less. No specific pericholecystic fluid is seen. The sonographic Arechiga sign is negative. There is no biliary dilatation, the common bile duct measures 6 mm. No significant pancreatic abnormality is seen on these images, although the pancreas is not well seen. IMPRESSION: Enlarged, fatty liver. Mildly prominent portal vein. Dictated by: Andre Pimentel M.D. on 12/27/2021 at 8:10 Approved by: Andre Pimentel M.D. on 12/27/2021 at 8:12
== END ==
PROVIDERS: PCP Family Medicine; Referring Provider Family Medicine; Visit Provider Family Medicine
DX: K76.0 Fatty (change of) liver, not elsewhere classified (principal); J45.30 Mild persistent asthma, uncomplicated; E78.2 Mixed hyperlipidemia
CPT/HCPCS: 76705

== ENCOUNTER → 2025-02-15 15:58 | Outpatient (CLI) | payer OTHER, SELFPAY ==
--- NOTE | 2025-02-15 15:59 | DI.RAD.S_ITS ---
PROCEDURE: XR LUMBAR SPINE MIN 4V INDICATIONS: low back pain with right-side radiculopathy TECHNIQUE: 5 views of the lumbar spine were acquired, including bilateral oblique views. COMPARISON: None. FINDINGS: Bones: 5 nonrib-bearing vertebrae are present. There is normal bony alignment. No vertebral body compression fractures. No suspicious bony lesions. Mild L4-L5 and L5-S1 degenerative disc disease. Mild L4-L5 and L5-S1 facet hypertrophy. Soft tissues: Overlying bowel gas pattern is normal. No suspicious soft tissue calcifications. Oblique images: No pars defects. IMPRESSION: Multilevel degenerative disc disease. Multilevel facet arthropathy. No fracture. No acute osseous lesion. If symptoms and/or clinical suspicion for pathology persists, evaluation with MRI should be considered for further assessment. Dictated by: Lorin Haney MD, PhD on 02/16/2025 at 9:47 Approved by: Lorin Haney MD, PhD on 02/16/2025 at 9:48
== END ==
PROVIDERS: PCP Family Medicine; Referring Provider Family Medicine; Visit Provider Family Medicine
DX: M51.369 Other intervertebral disc degeneration, lumbar region without mention of lumbar back pain or lower extremity pain (principal); M51.379 Other intervertebral disc degeneration, lumbosacral region without mention of lumbar back pain or lower extremity pain; M47.816 Spondylosis without myelopathy or radiculopathy, lumbar region; M47.817 Spondylosis without myelopathy or radiculopathy, lumbosacral region; M54.50 Low back pain, unspecified; M79.604 Pain in right leg
CPT/HCPCS: 72110